=== PATIENT | female | born 1950 | race Caucasian/White ===

== ENCOUNTER → 2017-02-04 | Outpatient (CLI) | payer MEDICARE, BC ==
--- NOTE | 2017-02-04 15:37 | RAD ---
EXAM: Renal/retroperitonal ultrasound HISTORY: Gross hematuria, history of renal stones. COMPARISON: None. FINDINGS: Ultrasound of the kidneys, bladder and retroperitoneum was performed. The right kidney measures 11.3 cm. Cortical thickness and echogenicity are preserved. There is no hydronephrosis. The left kidney measures 12.4 cm. Cortical thickness and echogenicity are preserved. There is no hydronephrosis. Prevoid bladder volume is 98 mL. No gross marrow lesions are seen. Ureteral jets are visualized bilaterally. IMPRESSION: 1. Unremarkable examination of the kidneys. No hydronephrosis or clear nephroureterolithiasis. Recommend ongoing follow-up for hematuria.
== END | disposition home or self-care (01) ==
LOC: US 14:42
PROVIDERS: ATTEND Obstetrics & Gynecology Gynecology
DX: R31.0 Gross hematuria (principal); Z87.442 Personal history of urinary calculi
CPT/HCPCS: 76770

== ENCOUNTER → 2019-09-07 | Outpatient (CLI) | payer MEDICARE, BC ==
[2019-09-07 14:01] LABS: BASO # 0.1 x10^3/uL (0.0-0.2); BASO % 1 % (0-3); EOS # 0.1 x10^3/uL (0.0-0.7); EOS % 2 % (0-3); HEMATOCRIT 41.7 % (36.0-47.0); HEMOGLOBIN 14.4 g/dL (12.0-15.5); LYMPH # 1.7 x10^3/uL (1.0-4.8); LYMPH % 31 % (24-48); MEAN CORPUSCULAR HEMOGLOBIN 33 pg (25-35); MEAN CORPUSCULAR HGB CONC 35 g/dL (31-37); MEAN CORPUSCULAR VOLUME 95 fL (79-100); MONO # 0.4 x10^3/uL (0.0-1.1); MONO % 7 % (0-9); NEUT # 3.2 x10^3uL (1.8-7.7); NEUT % 59 % (31-73); PLATELET COUNT 172 x10^3/uL (140-400); RED BLOOD COUNT 4.39 x10^6/uL (3.50-5.40); RED CELL DISTRIBUTION WIDTH 12.8 % (11.5-14.5); WHITE BLOOD COUNT 5.4 x10^3/uL (4.0-11.0)
[2019-09-07 14:16] LABS: CALCIUM 9.3 mg/dL (8.5-10.1); CREATININE 0.8 mg/dL (0.6-1.0); GFR 71.1; MAGNESIUM 1.8 mg/dL (1.8-2.4); POTASSIUM 4.3 mmol/L (3.5-5.1)
== END | disposition home or self-care (01) ==
LOC: LAB 13:42
PROVIDERS: ATTEND Internal Medicine
DX: I11.9 Hypertensive heart disease without heart failure (principal)
CPT/HCPCS: 36415; 80048; 83735; 85025; 85610; 85730

== ENCOUNTER → 2021-04-09 | Outpatient (CLI) | payer MEDICARE, BC ==
--- NOTE | 2021-04-10 09:28 | RAD ---
EXAM: PA and Lateral Views of the Chest DATE: 04/09/2021 2:10 PM INDICATION: Reason: ABDOMEN PAIN, COUGH / Spl. Instructions: / History: COMPARISON: No Prior FINDINGS: The heart is not enlarged. Mediastinal and hilar contours are normal. No focal parenchymal airspace opacity. No pleural effusion or pneumothorax. Degenerative changes of the thoracolumbar spine partially profiled. IMPRESSION: 1. No radiographic evidence for acute cardiopulmonary process. Electronically signed by: Humble Noonan MD (04/10/2021 9:26 AM) [id number]
== END ==
LOC: RAD 13:57
PROVIDERS: ATTEND Physician Assistant Medical
DX: M47.815 Spondylosis without myelopathy or radiculopathy, thoracolumbar region (principal); R05 Cough
CPT/HCPCS: 71046

== ENCOUNTER 2021-05-05 19:13 | Emergency (ER) | payer MEDICARE, BC ==
[~2021-05-05] VITALS: Ht 167.6 cm; Wt 91.0 kg
--- NOTE | 2021-05-05 19:55 | PHYS DOC ---
General Adult HPI: HPI: ".. I got this dog bite.. ..It was neighbors dog... His name is ' Alfred..' he is blue tic hound.. he was over in our yard baking at us..We know him and usually I call his name of them pet him... But this time he bit me.. " " He knew right away... he did the wrong thing... But neighbor states she is up-to-date w ith his shots...." Patient is a 70 year old male who presents with above hx and complaints of dog bite to the right hand. Patient has obvious puncture guevara to right hand. There is marked hematoma. Puncture guevara from both sides of the hand. Distal neurovascular appears to be still intact. Range of motion still. Seems to be intact with some pain. Cap refill is equal to left hand. Patient is right-hand dominant. Patient denies any history of immunosuppression. No recent travel. No specific ill contacts. Is up-to-date with tetanus as of few weeks ago. Pt. follows with Dr. Garnica. Review of Systems: Review of Systems: Constitutional: Denies fever or chills Eyes: Denies change in visual acuity HENT: Denies nasal congestion or sore throat Respiratory: Denies cough or shortness of breath Cardiovascular: Denies chest pain or edema GI: Denies abdominal pain, nausea, vomiting, bloody stools or diarrhea : Denies dysuria Musculoskeletal: Complains of dog bite right hand. Integument: Denies rash Neurologic: Denies headache, focal weakness or sensory changes Endocrine: Denies polyuria or polydipsia Lymphatic: Denies swollen glands Psychiatric: Denies depression or anxiety Family History: Family History: Noncontributory to presentation Current Medications: Current Meds: See nursing for home meds Allergies: Allergies: No known drug allergies Physical Exam: PE: Constitutional: Well developed, well nourished, moderate distress, non-toxic appearance. [] HENT: Normocephalic, atraumatic, bilateral external ears normal, oropharynx moist, no oral exudates, nose normal. [] Eyes: PERRLA, EOMI, conjunctiva normal, no discharge. [] Neck: Normal range of motion, no tenderness, supple, no stridor. [] Cardiovascular:Heart rate regular rhythm, no murmur [] Lungs & Thorax: Bilateral breath sounds clear to auscultation [] Abdomen: Bowel sounds normal, soft, no tenderness, no masses, no pulsatile masses. [] Skin: Warm, dry, no erythema, no rash. [] Back: No tenderness, no CVA tenderness. [] Extremities: No tenderness, no cyanosis, no clubbing, ROM intact, no edema. [] Except findings and right hand as per HPI Neurologic: Alert and oriented X 3, normal motor function, normal sensory function, no focal deficits noted. [] Psychologic: Affect normal, judgement normal, mood normal. [] EKG: EKG: [] Radiology/Procedures: Radiology/Procedures: [][address] [place] [id number] IMAGING REPORT Signed PATIENT: SORIN BENDER ACCOUNT: [id number] : 1950 LOCATION: ER AGE: 70 SEX: F EXAM STATUS: REG ER ORD. PHYSICIAN: ANURAG LEVIN MD REASON: dog bite crush injury, 4TH METACARPAL PROCEDURE: HAND RIGHT 3V XR HAND_RIGHT 3 VIEWS Clinical indications: Reason: dog bite crush injury, 4TH METACARPAL Findings: No acute fracture or dislocation or osteolytic process is evident. Dorsal soft tissue swelling is seen in the distal metacarpal region. No radiopaque foreign body is apparent. 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 IMPRESSION: No acute osseous abnormality is evident. Electronically signed by: Clark Funez MD (05/05/2021 9:25 PM) [id number] DICTATED AND SIGNED BY: CLARK FUNEZ MD DATE: 05/05/212123 CC: ANURAG LEVIN MD; MATT GARNICA MD ~MTH0 0 Heart Score: C/O Chest Pain: N/A Risk Factors: Risk Factors: DM, Current or recent (<one month) smoker, HTN, HLP, family history of CAD, obesity. Risk Scores: Score 0 - 3: 2.5% MACE over next 6 weeks - Discharge Home Score 4 - 6: 20.3% MACE over next 6 weeks - Admit for Clinical Observation Score 7 - 10: 72.7% MACE over next 6 weeks - Early Invasive Strategies Course & Med Decision Making: Course & Med Decision Making Pertinent Labs and Imaging studies reviewed. (See chart for details) Soak hand in Epson salts or salt water 4 times a day. Then apply Polysporin to wounds. Take Augmentin 875 twice a day. Take Tylenol and ibuprofen for pain. Dog must be confined and observe for the next 10 days. Monitor for behavioral changes. Return if any concerns. Impression; 1. Dog Bite Rt. hand [] Dragon Disclaimer: Dragon Disclaimer: This electronic medical record was generated, in whole or in part, using a voice recognition dictation system. Departure Departure: Referrals: MATT GARNICA MD (PCP) Scripts Fluconazole (DIFLUCAN) 100 Mg Tablet 100 MG PO DAILY for post antibiotics for 3 Days, #3 TAB Prov: ANURAG LEVIN MD 05/05/21 Amoxicillin/Potassium Clav (AUGMENTIN 875-125 TABLET) 1 Each Tablet 1 TAB PO BID for dog bite for 10 Days, #20 TAB 0 Refills Prov: ANURAG LEVIN MD 05/05/21 Dragon Disclaimer This chart was dictated in whole or in part using Voice Recognition software in a busy, high-work load, and often noisy Emergency Department environment. It may contain unintended and wholly unrecognized errors or omissions. ANURAG LEVIN MD May 05, 2021 19:55
[2021-05-05 20:05] VITALS: BP 154/91
[2021-05-05] MEDS ORDERED: IV NORMAL SALINE 50ML 50 ML ONE (20:34)
[2021-05-05] MEDS ORDERED: cefTRIAXone SODIUM 1 GM VIAL ONE (20:35)
[2021-05-05] MEDS ORDERED: BACITRACIN ZINC TOPICAL OINT PACKET. TP ONE (20:45)
[2021-05-05] MEDS ORDERED: HYDROcodon/IBUPROFEN 7.5/200MG 1 TAB TABLET PO ONE (20:45)
[2021-05-05] MEDS ORDERED: FLUC100T7 PO (21:10)
[2021-05-05] MEDS ORDERED: AMOX1TAB61 PO (21:10)
--- NOTE | 2021-05-05 21:28 | RAD ---
XR HAND_RIGHT 3 VIEWS Clinical indications: Reason: dog bite crush injury, 4TH METACARPAL Findings: No acute fracture or dislocation or osteolytic process is evident. Dorsal soft tissue swel ling is seen in the distal metacarpal region. No radiopaque foreign body is apparent. There is primar y degenerative osteoarthritis of interphalangeal joints and the second metacarpal phalangeal joint an d the first carpal metacarpal joint. IMPRESSION: No acute osseous abnormality is evident. Electronically signed by: Saturnino Funez MD (05/05/2021 9:25 PM) [id number]
[2021-05-05] MEDS ORDERED: ACETAMINOPHEN 500 MG TABLET PO ONE (21:30)
== END 2021-05-05 21:45 | disposition home or self-care (01) ==
LOC: ER 19:13
DX: S61.451A Open bite of right hand, initial encounter (principal); W54.0XXA Bitten by dog, initial encounter; Y93.89 Activity, other specified; Y92.89 Other specified places as the place of occurrence of the external cause; Y99.8 Other external cause status
CPT/HCPCS: 73130; 96365; 99284; J0696

== ENCOUNTER → 2022-01-18 | Outpatient (CLI) | payer MEDICARE, BC ==
[~2022-01-18] MED LIST: AMOX1TAB61 PO; FLUC100T7 PO
--- NOTE | 2022-01-18 14:42 | RAD ---
EXAMINATION: Right knee, tibia-fibula, and right ankle radiographs. VIEWS: 3 views of the right knee, 2 views of the right tibia-fibula, 3 views of the right ankle COMPARISON: None INDICATION:71 years, Female, pain, due to fall.. FINDINGS: Right knee: No acute fracture or dislocation. Severe tricompartmental osteoarthritis. No sizable join t effusion. Soft tissues are grossly unremarkable. Tibia-fibula: No acute fracture, dislocation, or subluxation. No bone erosion or periosteal reaction. Right ankle: No acute fracture or dislocation. Ankle mortise is concurrent. Talar dome is intact. The re is mild narrowing of the lateral malleolus. There is mild degenerative/proliferative changes about the ankle and midfoot. Nonspecific soft tissue swelling about the ankle. IMPRESSION: No evidence of acute osseous injury of the right knee, tibia fibula, or right ankle. Electronically signed by: Ray Katz DO (01/18/2022 2:40 PM) [id number]
== END ==
LOC: RAD 13:13
PROVIDERS: ATTEND Nurse Practitioner Family
DX: S89.91XA Unspecified injury of right lower leg, initial encounter (principal); M19.071 Primary osteoarthritis, right ankle and foot; M79.89 Other specified soft tissue disorders; M17.11 Unilateral primary osteoarthritis, right knee; M25.871 Other specified joint disorders, right ankle and foot; X58.XXXA Exposure to other specified factors, initial encounter; Y93.89 Activity, other specified; Y92.89 Other specified places as the place of occurrence of the external cause; Y99.8 Other external cause status
CPT/HCPCS: 73562; 73590; 73610